=== PATIENT | female | born 1965 | race Caucasian/White ===

== ENCOUNTER 2018-01-05 06:40 | Day surgery (SDC) | payer BC ==
[2018-01-05] MEDS ORDERED: FENTAnyl 50 MCG/ML VIAL (09:34)
[2018-01-05] MEDS ORDERED: MIDAZOLAM 1 MG/ML 2 ML INJ ×2 (09:34)
== END 2018-01-05 11:17 | disposition home or self-care (01) ==
LOC: GIL 06:40
DX: Z12.11 Encounter for screening for malignant neoplasm of colon (principal); D12.6 Benign neoplasm of colon, unspecified; K64.8 Other hemorrhoids
CPT/HCPCS: 45380; 88305